=== PATIENT | female | born 1990 | race Caucasian/White ===

== ENCOUNTER 2022-05-19 18:50 | Emergency (ER) | payer MEDICAID ==
[~2022-05-19] VITALS: Ht 157.5 cm; Wt 81.6 kg
[~2022-05-19 18:50] MED LIST: FERR-142 PO; ONDA4TAB PO; PREN-385 PO
[2022-05-19 19:22] VITALS: BP 102/63
--- NOTE | 2022-05-19 22:05 | NUR ---
Patient ambulated to bed 6.
--- NOTE | 2022-05-19 22:25 | NUR ---
BIB SELF C/O RIGHT EYE IRRITATION. PATIETN REPORTS SWELLING ON EYES AND REDNESS. REPORTS GETTING EYELSHES DONE X2DAYS, WITH NO HX OF GLUE IRRIATING EYE. PATIMELBAN STARTED MED FOR VG AND FINISHED 05/11. RR APPEAR TO BE EVEN AND UNLABORED. DOESNT APPEAR TO BE IN DISTRESS. PLACED IN BED AND GOWN. SIDE RAIL UP FOR SAFETY. ALL NEEDS MET PMHx: ASTHMA NKA
--- NOTE | 2022-05-19 22:44 | NUR ---
PATIENT AMBULATED TO THE AND BACK TO BED 6
--- NOTE | 2022-05-19 23:39 | NUR ---
Female Coin Box Inspector accompanied female patient for Pelvic Exam BY MD DAVID
[2022-05-19] MEDS ORDERED: CEPH-588 PO (23:43)
[2022-05-19] MEDS ORDERED: XYLGEL TP (23:43)
[2022-05-19] MEDS ORDERED: TOBR5SOL17 RIGHT EYE (23:43)
[2022-05-19 23:51] VITALS: BP 102/63
--- NOTE | 2022-05-19 23:51 | NUR ---
Patient discharged with v/s stable. Written and verbal after care instructions given ON BLEPHARITIS and explained. Patient alert, oriented and verbalized understanding of instructions. Ambulatory with steady gait. All questions addressed prior to discharge. ID band removed. Patient advised to follow up with PMD. Rx of KEFLEX, TOBRAMYCIN AND LIDOCAINE given.
--- NOTE | 2022-05-19 23:52 | NUR ---
Chart checked and completed.
[2022-05-19] MEDS ORDERED: FLUC150T PO (23:58)
== END 2022-05-19 23:51 | disposition home or self-care (01) ==
LOC: MED 18:50
DX: T78.49XA Other allergy, initial encounter (principal); H01.001 Unspecified blepharitis right upper eyelid; N76.5 Ulceration of vagina; J45.909 Unspecified asthma, uncomplicated; Z79.899 Other long term (current) drug therapy; Z79.2 Long term (current) use of antibiotics; X58.XXXA Exposure to other specified factors, initial encounter
CPT/HCPCS: 81002; 99284

== ENCOUNTER 2024-05-16 03:05 | Emergency (ER) | payer MEDICAID, OTHER ==
[~2024-05-16] VITALS: Ht 157.5 cm; Wt 85.7 kg
[~2024-05-16 03:05] MED LIST changes: +CEPH-588 PO; +FLUC150T PO; +TOBR5SOL38 RIGHT EYE; +XYLGEL TP
[2024-05-16 03:08] VITALS: BP 139/76; PULSE 91; RESP 18; TEMP 98.1; O2SAT 97
[2024-05-16 07:07] VITALS: O2SAT 98
[2024-05-16] MEDS: BACITRACIN OINT 500 UNITS/GM PKT TP ONE (07:22)
[2024-05-16] MEDS ORDERED: BACI-105 TP (07:23)
[2024-05-16 08:00] VITALS: BP 99/57; PULSE 76; RESP 16; TEMP 37.11408; O2SAT 98
== END 2024-05-16 08:00 | disposition home or self-care (01) ==
LOC: MED 03:05
DX: S61.210A Laceration without foreign body of right index finger without damage to nail, initial encounter (principal); J45.909 Unspecified asthma, uncomplicated; Z79.1 Long term (current) use of non-steroidal anti-inflammatories (NSAID); Z79.899 Other long term (current) drug therapy; Z79.2 Long term (current) use of antibiotics; W25.XXXA Contact with sharp glass, initial encounter; Y93.G1 Activity, food preparation and clean up; Y92.89 Other specified places as the place of occurrence of the external cause; Y99.8 Other external cause status
CPT/HCPCS: 12001; 90471; 90715; 99283